=== PATIENT | female | born 1960 | race Caucasian/White ===

== ENCOUNTER 2021-01-24 11:23 | Emergency (ER) | payer BC ==
[~2021-01-24] VITALS: Ht 162.6 cm; Wt 82.7 kg
--- NOTE | 2021-01-24 11:39 | NUR ---
isa to at bedside, ekg in progress.
[2021-01-24] MEDS ORDERED: iohexol 350MG/ML 100ml bottle IV ONE ×2 (11:42→13:32)
--- NOTE | 2021-01-24 11:49 | NUR ---
PT TO CT
[2021-01-24 12:06] LABS: BASOPHILS % (AUTO) 0.3 % (0-1); EOSINOPHILS # (AUTO) 0.1 X10'3 (0-0.9); EOSINOPHILS % (AUTO) 1.7 % (0-6); HEMATOCRIT 42.6 % (35.0-45.0); LYMPHOCYTES # (AUTO) 1.9 X10'3 (1.1-4.8); LYMPHOCYTES % (AUTO) 26.9 % (21-51); MEAN CORPUSCULAR HGB CONC 32.9 g/dL (33.0-36.5); MEAN CORPUSCULAR VOLUME 91.1 FL (78-98); MEAN PLATELET VOLUME 8.2 FL (7.4-10.4); MONOCYTES # (AUTO) 0.5 X10'3 (0-0.9); MONOCYTES % (AUTO) 6.9 % (2-12); NEUTROPHILS # (AUTO) 4.6 X10'3 (1.8-7.7); NEUTROPHILS % (AUTO) 64.2 % (42-75); PLATELET COUNT 212 X10'3 (140-440); RED BLOOD COUNT 4.68 X10'6 (4.20-5.60); RED CELL DISTRIBUTION WIDTH 14.1 % (11.5-14.5); WHITE BLOOD COUNT 7.2 X10'3 (4.5-11.0)
[2021-01-24] MEDS ORDERED: ondansetron/PF 4mg/2ml inj IV ONE (12:10)
[2021-01-24] MEDS ORDERED: aspirin 81mg tab.chew PO ONE (12:10)
[2021-01-24 12:14] LABS: PARTIAL THROMBOPLASTIN TIME 26 SECONDS (22-32)
[2021-01-24 12:15] LABS: ALANINE AMINOTRANSFERASE 31 U/L (12-78); ALBUMIN 3.7 G/DL (3.4-5.0); ALBUMIN/GLOBULIN RATIO 0.9 (1.1-1.5); ALKALINE PHOSPHATASE 79 IU/L (46-116); ANION GAP 12 (8-16); ASPARTATE AMINO TRANSFERASE 27 U/L (10-37); BILIRUBIN,TOTAL 0.7 MG/DL (0.1-1.0); BLOOD UREA NITROGEN 18 MG/DL (7-18); BUN/CREATININE RATIO 19.6 (6.6-38.0); CALCIUM 9.4 MG/DL (8.5-10.1); CHLORIDE 102 MMOL/L (99-107); CREATININE 0.92 MG/DL (0.40-0.90); GLUCOSE 97 MG/DL (70-104); POTASSIUM 3.7 MMOL/L (3.5-5.1); SODIUM 142 MMOL/L (135-145); TOTAL PROTEIN 7.6 G/DL (6.4-8.2); eGFR 62 ML/MIN
[2021-01-24 12:18] LABS: TROPONIN I < 0.04 NG/ML (0.0-0.05)
[2021-01-24] MEDS ORDERED: LORazepam 2 mg/ml vial IV ONE (12:25)
[2021-01-24] MEDS: atorvastatin 20mg tablet PO ONE ×2 (12:45→14:24)
[2021-01-24] MEDS ORDERED: normal saline 1000ML IV soln IVB ONE (14:00)
--- NOTE | 2021-01-24 14:15 | NUR ---
PT BACK FROM 2ND CT.
--- NOTE | 2021-01-24 14:29 | NUR ---
PT REFUSE LIPITOR, DANIEL HENSLEY NOTIFIED.
[2021-01-24] MEDS ORDERED: mag hydrox/Alum hydrox/simeth 30ml oral suspension PO PRN (14:45)
[2021-01-24] MEDS ORDERED: ondansetron/PF 4mg/2ml inj IV PRN (14:45)
[2021-01-24] MEDS ORDERED: magnesium hydroxide 30ml (MOM) UD suspension PO PRN (14:45)
[2021-01-24] MEDS ORDERED: acetaminophen 325mg tablet PO PRN (14:45)
[2021-01-24] MEDS ORDERED: normal saline 1000ml 1,000 ML IV SCH (14:45)
[2021-01-24] MEDS ORDERED: THYR90TA12 PO (15:11)
[2021-01-24 15:13] LABS: CHOL/HDL RATIO 1.3 (0.00-4.99); CHOLESTEROL 150 MG/DL (0-200); HDL CHOLESTEROL 114 MG/DL (35-60); LDL CHOLESTEROL 29 MG/DL (50-100); TRIGLYCERIDES 38 MG/DL (20-135)
[2021-01-24] MEDS ORDERED: VITA-268 PO (15:17)
[2021-01-24] MEDS ORDERED: TURM500C4 PO (15:17)
[2021-01-24] MEDS ORDERED: ZINC50TA67 PO (15:17)
--- NOTE | 2021-01-24 15:20 | NUR ---
PT REPORTS THAT SHE TOOL THE LIPITOR. I HAVE NO WAY TO VERIFY THAT SHE ACTUALLY TOOK THE PILLS. DANIEL HENSLEY NOTIFIED.
[2021-01-24] MEDS ORDERED: D-MA500C PO (15:27)
[2021-01-24 16:46] VITALS: BP 134/67
[2021-01-24] MEDS ORDERED: ASPI81TA52 PO (17:42)
[2021-01-24] MEDS ORDERED: MOME17SP BOTHNARES (17:42)
--- NOTE | 2021-01-24 17:59 | NUR ---
DR BURNETTE AT BEDSIDE, PT IS GONG TO BE DC'D HOME.
[2021-01-24] MEDS ORDERED: heparin, porcine 5000 units/ml vial SQ SCH (20:00)
[2021-01-25] MEDS ORDERED: aspirin 81mg tablet.DR PO SCH (08:00)
== END 2021-01-24 18:27 | disposition home or self-care (01) ==
LOC: ER 11:24 → ED HOLD 14:45 → UNDOADMIN 14:45 → UNDODISIN 16:10
DX: R25.1 Tremor, unspecified (principal); R42 Dizziness and giddiness; R09.82 Postnasal drip; R11.0 Nausea; J45.909 Unspecified asthma, uncomplicated; E11.9 Type 2 diabetes mellitus without complications; Z87.440 Personal history of urinary (tract) infections; Z85.41 Personal history of malignant neoplasm of cervix uteri; Z98.890 Other specified postprocedural states; Z88.5 Allergy status to narcotic agent; Z79.82 Long term (current) use of aspirin; Z79.899 Other long term (current) drug therapy
CPT/HCPCS: 36415; 70450; 70496; 70498; 70544; 70551; 71045; 80053; 80061; 82948; 84484; 85025; 85610; 85730; 93005; 93306; 93308; 96361; 96374; 99285; J2060; J7030; Q9967; G0378

== ENCOUNTER 2022-08-12 12:53 | Emergency (ER) | payer BC, MEDICAID ==
[~2022-08-12] VITALS: Ht 162.6 cm; Wt 81.8 kg
[~2022-08-12 12:53] MED LIST: D-MA500C PO; THYR90TA12 PO; TURM500C4 PO; VITA-268 PO; ZINC50TA67 PO
[2022-08-12] MEDS ORDERED: acetaminophen 325mg tablet PO STA (13:26)
[2022-08-12 14:04] LABS: BASOPHILS % (AUTO) 0.3 % (0-1); EOSINOPHILS % (AUTO) 0.9 % (0-6); HEMATOCRIT 39.9 % (35.0-45.0); HEMOGLOBIN 14.1 g/dl (12.0-16.0); LYMPHOCYTES # (AUTO) 0.9 X10'3 (1.1-4.8); LYMPHOCYTES % (AUTO) 41.2 % (21-51); MEAN CORPUSCULAR HEMOGLOBIN 30.9 PG (27.0-31.0); MEAN CORPUSCULAR HGB CONC 35.3 g/dL (33.0-36.5); MEAN CORPUSCULAR VOLUME 87.5 FL (78-98); MEAN PLATELET VOLUME 7.7 FL (7.4-10.4); MONOCYTES # (AUTO) 0.3 X10'3 (0-0.9); NEUTROPHILS % (AUTO) 44.6 % (42-75); PLATELET COUNT 149 X10'3 (140-440); RED BLOOD COUNT 4.56 X10'6 (4.20-5.60); RED CELL DISTRIBUTION WIDTH 15.1 % (11.5-14.5); WHITE BLOOD COUNT 2.3 X10'3 (4.5-11.0)
[2022-08-12 14:11] LABS: ALANINE AMINOTRANSFERASE 63 U/L (12-78); ALBUMIN 3.4 G/DL (3.4-5.0); ALBUMIN/GLOBULIN RATIO 0.9 (1.1-1.5); ALKALINE PHOSPHATASE 64 IU/L (46-116); ANION GAP 6 (8-16); ASPARTATE AMINO TRANSFERASE 74 U/L (10-37); BILIRUBIN,TOTAL 0.7 MG/DL (0.1-1.0); BLOOD UREA NITROGEN 13 MG/DL (7-18); CALCIUM 8.9 MG/DL (8.5-10.1); CHLORIDE 98 MMOL/L (99-107); CREATININE 0.93 MG/DL (0.40-0.90); GLUCOSE 99 MG/DL (70-104); MAGNESIUM 2.1 MG/DL (1.5-2.4); POTASSIUM 3.8 MMOL/L (3.5-5.1); SODIUM 134 MMOL/L (135-145); TOTAL CARBON DIOXIDE 29.6 MMOL/L (24-32); eGFR 61 ML/MIN
[2022-08-12 14:49] LABS: PLATELET ESTIMATE NORMAL; TOTAL CELLS COUNTED 100
[2022-08-12 14:50] LABS: BURR CELLS 1+
[2022-08-12] MEDS ORDERED: normal saline 1000ML IV soln IVB ONE (16:35)
[2022-08-12] MEDS ORDERED: dexamethasone sod phosphate 10mg/ml inj IV STA (16:47)
[2022-08-12] MEDS ORDERED: ondansetron/PF 4mg/2ml inj IV ONE (16:50)
[2022-08-12] MEDS ORDERED: BEBTELOVIMAB 175 MG/2 ML VIAL IV ONE (16:50)
[2022-08-12] MEDS ORDERED: ONDA4TAB12 PO (18:36)
[2022-08-12 18:41] VITALS: BP 123/61
== END 2022-08-12 19:09 | disposition home or self-care (01) ==
LOC: ER 12:53
DX: U07.1 COVID-19 (principal); E13.22 Other specified diabetes mellitus with diabetic chronic kidney disease; N18.9 Chronic kidney disease, unspecified; J45.909 Unspecified asthma, uncomplicated; Z88.6 Allergy status to analgesic agent; Z88.5 Allergy status to narcotic agent; Z79.899 Other long term (current) drug therapy
CPT/HCPCS: 36415; 71045; 80053; 83735; 84145; 85007; 85025; 96360; 99284; J7030; M0222; Q0222

== ENCOUNTER 2024-11-03 04:16 | Emergency (ER) | payer MEDICARE, MEDICAID ==
[~2024-11-03 04:16] MED LIST changes: -D-MA500C PO; +ONDA-243 PO; -TURM500C4 PO; -VITA-268 PO; -ZINC50TA67 PO
[2024-11-03] MEDS: ondansetron/PF 4mg/2ml inj IV ONE (05:12)
[2024-11-03] MEDS: normal saline 1000ML IV soln IVB ONE (05:13)
[2024-11-03 05:37] VITALS: TEMP 99
[2024-11-03] MEDS: loperamide 2mg capsule PO ONE (05:41)
[2024-11-03] MEDS: ketorolac trometh 15mg/ml vial 15 MG/ML ML IV ONE (05:41)
[2024-11-03] MEDS ORDERED: ONDA-245 PO (06:04)
[2024-11-03 08:26] VITALS: BP 120/68; PULSE 70; RESP 17; O2SAT 100
== END 2024-11-03 08:30 | disposition home or self-care (01) ==
LOC: ER 04:17
DX: B34.9 Viral infection, unspecified (principal); J45.909 Unspecified asthma, uncomplicated; E11.22 Type 2 diabetes mellitus with diabetic chronic kidney disease; N18.9 Chronic kidney disease, unspecified; Z85.41 Personal history of malignant neoplasm of cervix uteri; Z88.5 Allergy status to narcotic agent; Z60.2 Problems related to living alone; Z79.899 Other long term (current) drug therapy; Z20.822 Contact with and (suspected) exposure to COVID-19
CPT/HCPCS: 36415; 71045; 87502; 87503; 87811; 96361; 96374; 99284; J2405; J7030